=== PATIENT | male | born 1955 | race Caucasian/White ===

== ENCOUNTER 2022-05-28 11:45 | Outpatient (RCR) | payer MEDICARE, BC, SELFPAY | END 2022-09-06 23:59 | disposition home or self-care (01) | PROVIDERS: PCP Surgery; Visit Provider Surgery | DX: M67.912 Unspecified disorder of synovium and tendon, left shoulder (principal); Z51.89 Encounter for other specified aftercare | CPT/HCPCS: 97110; 97140; 97161 ==

== ENCOUNTER 2023-01-05 07:00 | Emergency (ER) | payer MEDICARE, BC, SELFPAY ==
[2023-01-05 07:08] VITALS: BP 118/85; PULSE 67; RESP 18; O2SAT 99; BMI 25.5
--- NOTE | 2023-01-05 07:33 | CRLHL7_ITS ---
For Patients: As a result of the Cures Act, medical imaging exams and procedure reports are released immediately into your electronic medical record. You may view this report before your referring provider. If you have questions, please contact your health care provider. INDICATION: Fall. FINDINGS: Three views of the right shoulder were obtained. There is no acute fracture or dislocation. There is slight widening of the acromioclavicular joint which could be secondary to a acromioclavicular joint separation. Dictated by Jon Lindsey MD @ 01/05/2023 8:31:00 AM (Electronically Signed)
--- NOTE | 2023-01-05 07:41 | ED_ITS ---
HPI - Extremity Injury (Upper) General Chief Complaint: Shoulder Injury/Pain <Dante Cassidy MD - Last Filed: 01/05/23 07:42> Stated Complaint: R shoulder injury <Dante Cassidy MD - Last Filed: 01/05/23 07:42> Time Seen by Provider: 01/05/23 07:31 <Dante Cassidy MD - Last Filed: 01/05/23 07:42> History of Present Illness HPI narrative: Patient is a 67-year-old gentleman who comes in today after falling on his morning run. He landed on the lateral posterior aspect of the right shoulder. He did not lose consciousness. He did not hit his head. He has pain over the medial aspect of the right shoulder and has difficult time manipulating the s houlder. He has had no other significant symptoms he can move the elbow and wrist without any difficulty. His small abrasion on the posterior aspect of the right shoulder but no other significant signs of injury other than mild swelling. Again patient is otherwise uninjured. <Dante Cassidy MD - Last Filed: 01/05/23 07:42> Related Data Home Medications: Home Medications Medication Instructions Recorded Confirmed rosuvastatin 5 mg tablet 5 mg PO QPM 01/05/23 01/05/23 <Dante Cassidy MD - Last Filed: 01/05/23 07:42> Allergies/Adverse Reactions: Allergies Allergy/AdvReac Type Severity Reaction Status Date / Time No Known Drug Allergies Allergy Verified 01/05/23 07:07 <Dante Cassidy MD - Last Filed: 01/05/23 07:42> Review of Systems Status of ROS: Reports: 10 or more systems reviewed and unremarkable except as noted in History and below <Dante Cassidy MD - Last Filed: 01/05/23 07:42> [facility] Social History: Social History Smoking Status: Never smoker Do you use any of these nicotine containing products: None Second hand tobacco smoke exposure: No How often do you have a drink containing alcohol: 2-3 times a week How many standard drinks containing alcohol do you have on a typical day: 1 or 2 How often do you have six or more drinks on one occasion: Never AUDIT-C Alcohol total score: 3 Non-prescribed substance use: denies use service: No <Dante Cassidy MD - Last Filed: 01/05/23 07:42> Exam Narrative: Exam Narrative: EXAM GENERAL: Patient appears comfortable and well. EYES: No scleral icterus. LYMPH: No supraclavicular or cervical lymphadenopathy. SKIN: Mild abrasion noted per right posterior shoulder. EXT: No dependent lower extremity pedal edema. HEART: Regular rate and rhythm with no murmurs, rubs, or gallops. LUNGS: Clear to auscultation bilaterally with no crackles or wheezes. ABD: Soft, non tender, non distended. PSYCH: Good eye contact, speech is not pressured. <Dante Cassidy MD - Last Filed: 01/05/23 07:42> Const: Vital Signs, click to edit/add: Vital Signs - 24 hr 01/05/23 07:08 Pulse Rate [Pulse Oximeter] 67 Respiratory Rate 18 Blood Pressure [Le ft Upper Arm] 118/85 Pulse Oximetry 99 Oxygen Delivery Me thod Room Air <Dante Cassidy MD - Last Filed: 01/05/23 07:42> Vital Signs, click to edit/add: Vital Signs - 24 hr 01/05/23 07:08 Pulse Rate [Pulse Oximeter] 67 Respiratory Rate 18 Blood Pressure [Le ft Upper Arm] 118/85 Pulse Oximetry 99 Oxygen Delivery Me thod Room Air <Yannick Meyer DO - Last Filed: 01/05/23 08:42> Course Course ED Course: Patient seen examined. X-ray of the right shoulder ordered. <Dante Cassidy MD - Last Filed: 01/05/23 07:42> Vital Signs Vital signs: Initial Vital Signs Temperature Source Temporal Artery Scan 01/05/23 07:08 Pulse Rate 67 01/05/23 07:08 Pulse Rhythm Regular 01/05/23 07:08 Respiratory Rate 18 01/05/23 07:08 Blood Pressure 118/85 01/05/23 07:08 Blood Pressure Mean 96 01/05/23 07:08 Blood Pressure Position Sitting 01/05/23 07:08 Pulse Oximetry 99 01/05/23 07:08 Oxygen Delivery Method Room Air 01/05/23 07:08 Vital Signs Pulse Rate 67 01/05/23 07:08 Respiratory Rate 18 01/05/23 07:08 Blood Pressure 118/85 01/05/23 07:08 Pulse Oximetry 99 01/05/23 07:08 Oxygen Delivery Method Room Air 01/05/23 07:08 Pulse Rate 67 01/05/23 07:08 Respiratory Rate 18 01/05/23 07:08 Blood Pressure 118/85 01/05/23 07:08 Pulse Oximetry 99 01/05/23 07:08 Oxygen Delivery Method Room Air 01/05/23 07:08 <Dante Cassidy MD - Last Filed: 01/05/23 07:42> Initial Vital Signs Temperature Source Temporal Artery Scan 01/05/23 07:08 Pulse Rate 67 01/05/23 07:08 Pulse Rhythm Regular 01/05/23 07:08 Respiratory Rate 18 01/05/23 07:08 Blood Pressure 118/85 01/05/23 07:08 Blood Pressure Mean 96 01/05/23 07:08 Blood Pressure Position Sitting 01/05/23 07:08 Pulse Oximetry 99 01/05/23 07:08 Oxygen Delivery Method Room Air 01/05/23 07:08 Vital Signs Pulse Rate 67 01/05/23 07:08 Respiratory Rate 18 01/05/23 07:08 Blood Pressure 118/85 01/05/23 07:08 Pulse Oximetry 99 01/05/23 07:08 Oxygen Delivery Method Room Air 01/05/23 07:08 Pulse Rate 67 01/05/23 07:08 Respiratory Rate 18 01/05/23 07:08 Blood Pressure 118/85 01/05/23 07:08 Pulse Oximetry 99 01/05/23 07:08 Oxygen Delivery Method Room Air 01/05/23 07:08 <Yannick Meyer DO - Last Filed: 01/05/23 08:42> MDM - Extremity Injury (Upper) MDM Narrative Medical decision making narrative: patient signed out to me at the start of my shift by the overnight provider. X-ray of the right shoulder is pending. A returned showing what appears to be a widened AC joint. Unsure of this is new or old. he states more of his pain is in the posterior aspect of the shoulder but considering came in for right shoulder injury in the does appear to be a widened AC joint we will put him in a sling and have him follow-up with orthopedics. He is agreeable to this plan. <Yannick Meyer DO - Last Filed: 01/05/23 08:42> Imaging Data Right shoulder x-ray: Radiologist's impression: Three views of the right shoulder were obtained. There is no acute fracture or dislocation. There is slight widening of the acromioclavicular joint which could be secondary to a acromioclavicular joint separation. Dictated by Jon Lindsey MD @ 01/05/2023 8:31:00 AM <Yannick Meyer DO - Last Filed: 01/05/23 08:42> Discharge Plan Discharge Clinical Impression: Acute pain of right shoulder <Dante Cassidy MD - Last Filed: 01/05/23 07:42> Patient Disposition: Home, Self-Care <Dante Cassidy MD - Last Filed: 01/05/23 07:42> Condition: Stable <Dante Cassidy MD - Last Filed: 01/05/23 07:42> Instructions: Acromioclavicular Separation (ED) <Dante Cassidy MD - Last Filed: 01/05/23 07:42> Additional Instructions: x-ray shows you may have a separation of the AC joint. Recommend follow- up with Orthopedics within the week. Take Tylenol and ibuprofen for pain <Dante Cassidy MD - Last Filed: 01/05/23 07:42> Prescriptions: No Action rosuvastatin 5 mg tablet 5 mg PO QPM <Dante Cassidy MD - Last Filed: 01/05/23 07:42> Follow Up/Referrals: Yannick Younger MD [Primary Care Provider] - <Dante Cassidy MD - Last Filed: 01/05/23 07:42> Stand Alone Forms: [facility] Inst[facility] <Dante Cassidy MD - Last Filed: 01/05/23 07:42>
[2023-01-05 09:00] VITALS: BP 118/85; PULSE 67; RESP 18; TEMP 36.6
== END 2023-01-05 09:00 | disposition home or self-care (01) ==
PROVIDERS: Emergency Provider Internal Medicine; PCP Surgery
DX: M25.511 Pain in right shoulder (principal)
CPT/HCPCS: 73030; 99282; 99283; 99284